=== PATIENT | female | born 1995 | race Caucasian/White ===

== ENCOUNTER 2022-01-03 12:50 | Emergency (ER) | payer OTHER ==
[~2022-01-03 12:50] MED LIST: TESSALON PERLE100 MG PO; VENTOLIN HFA IN18 GM INH
[2022-01-03] MEDS ORDERED: OLANZAPINE15 MG PO (13:53)
[2022-01-03] MEDS ORDERED: HYDROXYZINE HCL25 MG PO (13:54)
[2022-01-03] MEDS ORDERED: AMITRIPTYLINE H10 MG PO (13:54)
[2022-01-03 14:16] LABS: BASOPHIL 0.5 % (0-2); EOSINOPHIL 2.4 % (0-5); HGB 12.6 g/dl (12.5-16.0); LYMPHOCYTE 26.4 % (15-48); MCH 28.4 pg (25.0-31.0); MCHC 33.2 g/dL (32.0-36.0); MCV 85.8 fL (78.0-100.0); MONOCYTE 7.3 % (0-12); MPV 10.5 fL (6.0-9.5); NRBC 0; PLT 266 K/uL (150-400); RBC 4.43 M/uL (4.20-5.40); RDW 14.1 % (11.5-14.0); WBC 9.9 K/uL (4.0-10.5)
[2022-01-03 14:44] LABS: BUN/CREAT RATIO (CALC) 15.7 RATIO; CREATININE 0.7 mg/dL (0.51-0.95); POTASSIUM 3.6 mmol/L (3.5-5.1)
[2022-01-03 15:34] LABS: BILIRUBIN NEGATIVE (NEGATIVE); BLOOD NEGATIVE Ery/uL (NEGATIVE); CLARITY CLEAR (CLEAR); COLOR YELLOW (YELLOW); GLUCOSE (U) NORMAL (NORMAL); LEUKOCYTES NEGATIVE Leu/uL (NEGATIVE); NITRITE NEGATIVE (NEGATIVE); PROTEIN NEGATIVE (NEGATIVE); SPECIFIC GRAVITY 1.025 (1.001-1.030)
[2022-01-03 15:38] LABS: AMPHETAMINES NEGATIVE (NEGATIVE); BARBITURATES NEGATIVE (NEGATIVE); ECSTASY (MDMA) NEGATIVE (NEGATIVE); MARIJUANA (THC) POSITIVE (NEGATIVE); METHADONE NEGATIVE (NEGATIVE); OPIATES NEGATIVE (NEGATIVE); OXYCODONE NEGATIVE (NEGATIVE)
== END 2022-01-03 17:10 | disposition home or self-care (01) ==
LOC: FER 12:50
PROVIDERS: Nurse Practitioner Family
DX: R56.9 Unspecified convulsions (principal); Z28.310 Unvaccinated for COVID-19
CPT/HCPCS: 36415; 70450; 80048; 80305; 81003; 85025